=== PATIENT | female | born 2000 | race Caucasian/White ===

== ENCOUNTER 2024-04-20 21:33 | Emergency (ER) | payer OTHER, SELFPAY ==
--- NOTE | ~2024-04-20 | XR_ITS ---
EXAM: XR ankle RT 2V DATE: 04/20/2024 22:07 HISTORY: injury . COMPARISON: None available. FINDINGS: Normal mineralization. Comminuted distal right tibial fracture with 7 mm lateral displacem ent, 13 degrees lateral angulation, 6 mm anterior displacement, and 6 degrees posterior angulation. C omminuted distal right fibular fracture with 5 mm lateral displacement and 23 degrees lateral angulat ion, 4 mm anterior displacement, and 3 degrees posterior angulation. No lytic or blastic lesion. Join t spaces are maintained. No erosion or periosteal change. Soft tissues within normal limits. IMPRESSION: Comminuted fractures of the distal right tibia and fibula with moderate lateral angulatio n, mild anterolateral displacement and mild posterior angulation. Reviewed, dictated and finalized at location [facility]. IMPRESSION: Comminuted fractures of the distal right tibia and fibula with mode rate lateral angulation, mild anterolateral displacement and mild posterior ang ulation.
[2024-04-20 21:39] VITALS: BP 134/85; PULSE 122; RESP 20; TEMP 36.6; O2SAT 100
[2024-04-20] MEDS: HYDROmorphone HCL INJ (*CRX) 1 MG/ML SYR IV PUSH ×2 (22:21→23:01)
--- NOTE | 2024-04-20 22:22 | ED.GENADULT ---
HPI - General Adult General Chief complaint: Extremity Injury, Lower Stated complaint: RLE INJURY S/P FALL WHILE SKATING Time Seen by Provider: 04/20/24 22:10 History of Present Illness HPI narrative: Patient 23-year-old female who presents emergency department with chief complaint of right lower extremity pain. Patient reports she was playing roller Brady and got tackled by another individual the patient reports that she felt snapping in her lower extremity and reports severe pain patient reported also an obvious deformity. Related Data Allergies Allergy/AdvReac Type Severity Reaction Status Date / Time No Known Allergies Allergy Verified 04/20/24 21:50 Review of Systems Review of Systems: A 10 system review of systems was completed on the patient and is negative except for what is stated in the HPI. Nursing and ancillary documentation was reviewed. Exam Narrative: GENERAL: Well-appearing, well-nourished, and in no acute distress. HEAD: Normocephalic, atraumatic. EYES: PERRLA and EOMI. ENT: Nares clear, no rhinorrhea or epistaxis. Mucous membranes moist. NECK: Supple. CHEST: Clear to auscultation. No respiratory distress. HEART: Regular rate and rhythm. No murmur heard. Normal peripheral pulses. ABDOMEN: Soft, nontender, nondistended, normal active bowel sounds. EXTREMITIES: Normal range of motion in all extremities except for right lower extremity. Obvious deformity of the distal lower extremity intact pulses intact sensation. There is a small puncture wound at the area of the deformity. No edema. SKIN: Warm, dry, no rash. NEURO: No focal deficits. Alert and oriented x3. PSYCH: Normal mood and affect. Course Vital Signs Vital signs: Vital Signs Temperature 36.6 C 04/20/24 21:39 Pulse Rate 122 H 04/20/24 21:39 Respiratory Rate 20 04/20/24 21:39 Blood Pressure 134/85 04/20/24 21:39 Pulse Oximetry 100 04/20/24 21:39 Oxygen Delivery Room Air 04/20/24 21:39 Temperature 36.6 C 04/20/24 21:39 Pulse Rate 122 H 04/20/24 21:39 Respiratory Rate 20 04/20/24 21:39 Blood Pressure 134/85 04/20/24 21:39 Pulse Oximetry 100 04/20/24 21:39 Oxygen Delivery Room Air 04/20/24 21:39 Procedures Orthopedic Splinting/Casting Injury #1: Splinting/Casting Date: 04/20/24 Splinting/Casting Time: 22:48 Side: right Lower Extremity Injury Location: lower leg Lower Extremity Immobilizer: posterior splint OCL: short leg Pre-Procedure Neuro Vascular Exam: normal Post-Procedure Neuro Vascular Exam: normal Medical Decision Making MDM Narrative Medical decision making narrative: Differential diagnosis includes open fracture, closed fracture, Plain film x-rays were obtained which showed a significantly displaced fracture of the tibia and fibula On exam of the area of the fracture there is a small wound present that appears to be a puncture wound the concern for open fracture is entertained the patient was given 2 g of Ancef and tetanus was updated The images were reviewed with our local orthopedic surgeon who recommended the patient be transferred to a facility with orthopedic trauma The case was discussed with Dr. Lovelace at [facility] emergency department and patient was accepted Vital Signs Vital Signs: Vital Signs Temperature 36.6 C 04/20/24 21:39 Pulse Rate 122 H 04/20/24 21:39 Respiratory Rate 20 04/20/24 21:39 Blood Pressure 134/85 04/20/24 21:39 Pulse Oximetry 100 04/20/24 21:39 Oxygen Delivery Room Air 04/20/24 21:39 Temperature 36.6 C 04/20/24 21:39 Pulse Rate 122 H 04/20/24 21:39 Respiratory Rate 20 04/20/24 21:39 Blood Pressure 134/85 04/20/24 21:39 Pulse Oximetry 100 04/20/24 21:39 Oxygen Delivery Room Air 04/20/24 21:39 Discharge Plan Discharge Clinical Impression: Fracture of tibia and fibula, shaft, open Qualifiers: Encounter type: initial encoun
[2024-04-20 22:50] VITALS: BP 126/73; PULSE 112; RESP 14; O2SAT 100
[2024-04-20] MEDS: ceFAZolin 2 GM/D5W 50 ML 2 GM/50 ML BAG IVPB (23:00)
[2024-04-20] MEDS: TETANUS,DIPHTHERIA,AC PERTUSSIS ADULT (0.5 ML) BOOSTRIX IM (23:00)
[2024-04-20 23:04] LABS: Basophils Percent Auto 0.3 % (0.2-1.2); Eosinophils Absolute Auto 0.1 K/mm3 (0-0.3); Eosinophils Percent Auto 0.4 % (0-4.4); Immature Granulocyte Absolute 0.04 K/mm3 (0.00-0.031); Immature Granulocyte Percent A 0.3 % (0-0.5); Lymphocytes Absolute Auto 1.72 K/mm3 (0.9-3.2); Lymphocytes Percent Auto 12.3 % (18.3-44.2); Mean Corpuscular HGB Conc 33.3 g/dl (32-36); Mean Corpuscular Hemoglobin 27.9 pg (26-34); Mean Corpuscular Volume 83.7 fl (80-100); Mean Platelet Volume 10.7 fl (7.4-10.4); Monocytes Absolute Auto 0.9 K/mm3 (0.1-0.6); Monocytes Percent Auto 6.3 % (2.6-8.5); Neutrophils Absolute Auto 11.2 K/mm3 (1.3-6.7); Neutrophils Percent Auto 80.4 % (45.5-73.1); Platelet Count Result 260 k/mm3 (150-375); Red Cell Distribution Width 12.9 % (11.5-14.5)
[2024-04-20 23:14] LABS: Alanine Aminotransferase 35 U/L (6-35); Albumin Level 4.3 g/dL (3.5-5.1); Alkaline Phosphatase 66 U/L (38-126); Anion Gap 6 mmol/L (4-12); Aspartate Amino Transferase 27 U/L (14-36); Bilirubin,Total 0.3 mg/dL (0.2-1.3); Blood Urea Nitrogen 11 mg/dL (7-17); Calcium 9.6 mg/dL (8.4-10.2); Carbon Dioxide 23 mmol/L (22-30); Chloride 108 mmol/L (98-107); Estimated CRCL calculation 147 ml/min; Estimated Glomerular Filt Rate > 60; Glucose 116 mg/dL (65-110); Potassium 3.9 mmol/L (3.4-5.0); Sodium 137 mmol/L (137-145)
== END 2024-04-21 00:18 | disposition short-term general hospital (02) ==
PROVIDERS: Emergency Provider Emergency Medicine; PCP Family Medicine
DX: S82.391B Other fracture of lower end of right tibia, initial encounter for open fracture type I or II (principal); S82.831B Other fracture of upper and lower end of right fibula, initial encounter for open fracture type I or II; Z23 Encounter for immunization; W03.XXXA Other fall on same level due to collision with another person, initial encounter; Y93.51 Activity, roller skating (inline) and skateboarding
CPT/HCPCS: 36415; 73600; 80053; 85025; 90471; 90715; 96365; 96372; 96375; 99284; 99285; J0690; J1170